=== PATIENT | female | born 1955 | race Caucasian/White ===

== ENCOUNTER → 2019-08-16 13:10 | Outpatient (BNVA) | payer MEDICARE, MEDICAID, SELFPAY | PROVIDERS: Family Provider Hospitalist; Referring Provider Family Medicine; Visit Provider Obstetrics & Gynecology | DX: R32 Unspecified urinary incontinence (principal) | CPT/HCPCS: 81003 ==

== ENCOUNTER → 2019-10-06 13:45 | Outpatient (BNVA) | payer MEDICARE, MEDICAID, SELFPAY | PROVIDERS: Family Provider Hospitalist; PCP Family Medicine; Referring Provider Obstetrics & Gynecology; Visit Provider Nurse Practitioner Family | DX: N39.46 Mixed incontinence (principal); R35.8 Other polyuria; F17.210 Nicotine dependence, cigarettes, uncomplicated | CPT/HCPCS: 80053; 81001 ==

== ENCOUNTER → 2019-11-22 14:13 | Outpatient (BNVA) | payer MEDICARE, MEDICAID, SELFPAY | PROVIDERS: Family Provider Hospitalist; PCP Family Medicine; Visit Provider Nurse Practitioner Family | DX: N39.46 Mixed incontinence (principal); R35.8 Other polyuria | CPT/HCPCS: 81001 ==

== ENCOUNTER → 2020-03-20 10:11 | Outpatient (BNVA) | payer MEDICARE, MEDICAID, SELFPAY | PROVIDERS: Family Provider Hospitalist; PCP Family Medicine; Referring Provider Family Medicine; Visit Provider Specialist | DX: G40.909 Epilepsy, unspecified, not intractable, without status epilepticus (principal) | CPT/HCPCS: 99204 ==

== ENCOUNTER → 2020-04-30 07:48 | Outpatient (BNVA) | payer MEDICARE, MEDICAID, SELFPAY | PROVIDERS: Family Provider Hospitalist; PCP Family Medicine; Visit Provider Specialist | DX: G40.909 Epilepsy, unspecified, not intractable, without status epilepticus (principal) | CPT/HCPCS: 95816 ==

== ENCOUNTER → 2020-05-23 14:04 | Outpatient (BNVA) | payer MEDICARE, MEDICAID, SELFPAY | PROVIDERS: Family Provider Hospitalist; PCP Family Medicine; Visit Provider Specialist | DX: G40.209 Localization-related (focal) (partial) symptomatic epilepsy and epileptic syndromes with complex partial seizures, not intractable, without status epilepticus (principal); F17.210 Nicotine dependence, cigarettes, uncomplicated | CPT/HCPCS: 99214 ==

== ENCOUNTER → 2021-05-07 15:17 | Outpatient (BNVA) | payer MEDICARE, MEDICAID, SELFPAY | PROVIDERS: Family Provider Hospitalist; PCP Family Medicine; Visit Provider Specialist | DX: G40.209 Localization-related (focal) (partial) symptomatic epilepsy and epileptic syndromes with complex partial seizures, not intractable, without status epilepticus (principal); Z91.419 Personal history of unspecified adult abuse | CPT/HCPCS: 99214; 99215 ==

== ENCOUNTER → 2021-11-19 14:22 | Outpatient (BNVA) | payer MEDICARE, MEDICAID, SELFPAY | PROVIDERS: Family Provider Hospitalist; PCP Family Medicine; Visit Provider Specialist | DX: G40.209 Localization-related (focal) (partial) symptomatic epilepsy and epileptic syndromes with complex partial seizures, not intractable, without status epilepticus (principal); F30.8 Other manic episodes | CPT/HCPCS: 99213 ==

== ENCOUNTER 2024-06-07 08:40 | Emergency (ER) | payer MEDICARE, MEDICAID, SELFPAY ==
[2024-06-07 08:41] VITALS: BP 145/75; PULSE 61; RESP 18; TEMP 36.9; O2SAT 93; BMI 21.6
--- NOTE | 2024-06-07 08:41 | ECG_ITS ---
[facility] 2024-[facility]07 Pat Name: Lucy Segovia Department: Room: Gender: Female Interface Engineer: : 1955 Requested By: Bi Lombardi Order Number: [id number] Shari MD: Angelita Last M.D. Measurements Intervals [place] Rate: 57 P: 71 WA: 130 QRS: 24 QRSD: 94 T: 40 QT: 432 QTc: 422 Interpretive Statements SINUS BRADYCARDIA LEFT ATRIAL ENLARGEMENT [-0.15mV P-WAVE IN V1/V2] No previous ECG available for comparison Electronically Signed On 06-07-2024 21:36:53 [employer]OUR BUS DRIVER by Angelita Last M.D. [id number]
--- NOTE | 2024-06-07 09:01 | ED_ITS ---
HPI - Headache 2 General: Chief Complaint: Headache Stated Complaint: Pain in Head and burning in arm Time Seen by Provider: 06/07/24 08:41 History of Present Illness: 68-year-old female presents emergency ro om with a complaint of a headache. She states she thought she was exposed to some bleach fumes yesterday gave her burning sensation in her right arm and then a headache she woke up with a headache this morning that is resolved now she states she was talking to her daughter earlier on the phone and she was hyperventilating that also resolved. On arrival here she has a waning headache and no other symptoms she is awake and alert no chest pain no shortness of breath no neurologic symptoms. Associated symptoms: Deny chest pain, fever(s) or rash Related Data Home Medications Medication Instructions Recorded Confirmed aspirin 81 mg tablet,delayed 162 mg PO DAILY 07/20/19 06/07/24 release (Adult Aspirin Regimen) cyanocobalamin (vitamin B-12) 1,000 mcg PO DAILY 07/20/19 06/07/24 1,000 mcg tablet gabapentin 300 mg capsule 300 mg PO BEDTIME 07/20/19 06/07/24 herbal drugs (Colon Herbal 1 cap PO DAILY 07/20/19 06/07/24 Cleanser capsule) mirtazapine 45 mg tablet 45 mg PO DAILY 07/20/19 06/07/24 triamcinolone acetonide 0.025 % 1 applic topical DAILY PRN Skin 07/20/19 06/07/24 topical cream Irritation cyclobenzaprine 10 mg tablet 5 - 10 mg PO DAILY 03/20/20 06/07/24 primidone 50 mg tablet 25 mg PO BEDTIME 03/20/20 06/07/24 biotin 10,000 mcg chewable tablet 10,000 mcg PO DAILY 06/07/24 06/07/24 (Hair, Skin and Nails (biotin)) cetirizine 10 mg tablet (Zyrtec) 10 mg PO DAILY 06/07/24 06/07/24 cholecalciferol (vitamin D3) 50 50 mcg PO DAILY 06/07/24 06/07/24 mcg (2,000 unit) tablet (Vitamin D3) fluticasone propionate 50 1 spray intranasal BID 06/07/24 06/07/24 mcg/actuation nasal spray,suspension levetiracetam 500 mg tablet 500 mg PO BID 06/07/24 06/07/24 magnesium oxide 400 mg PO DAILY 06/07/24 06/07/24 sertraline 100 mg tablet 100 mg PO DAILY 06/07/24 06/07/24 vit C 250 mg-vit E 90 mg-zinc 40 1 tab PO BID 06/07/24 06/07/24 mg-copper 1 [id number] capsule (PreserVision AREDS-2) Allergies Allergy/AdvReac Type Severity Reaction Status Date / Time Sulfa (Sulfonamide Allergy Severe ALGY-Hives Verified 11/19/21 14:29 Antibiotics) Review of Systems 2 Const: Denies: fever(s) or chills Card: Denies: chest pain Resp: Denies: dyspnea GI: Denies: abdominal pain : Denies: dysuria, urinary frequency or urinary urgency Musc: Denies: neck pain or back pain Skin/Breast: Denies: rash PFSH ED 2 PFSH: Medical History Diabetes Epilepsy Mixed urge and stress incontinence Polyuria Surgical History History of arthroscopic knee surgery left x2 History of arthroscopy of left shoulder History of shoulder surgery left History of tonsillectomy Family History Grandmother Breast cancer maternal Mother Diabetes Heart disease Sister Stroke Social History Smoking and tobacco/nicotine status: never used tobacco/nicotine Alcohol intake: current Alcohol intake frequency: holidays/special occasions only Alcohol type: beer Substance/Drug Use: never Marital status: Single Current occupational status: disabled Physical Exam 2 Const: COMMON NORMALS: no acute distress GENERAL APPEARANCE: cooperative and comfortable ORIENTATION/CONSCIOUSNESS: Yes awake, Yes oriented to person, Yes oriented to place and Yes oriented to time HENMT: COMMON NORMALS: normocephalic, atraumatic and hearing grossly normal bilaterally HEAD & SCALP: normocephalic and atraumatic Resp: COMMON NORMALS: normal respiratory effort, No retractions, No use of accessory muscles and clear to auscultation bilaterally AUSCULTATION: clear to auscultation bilaterally Cardio: COMMON NORMALS: regular rate, regular rhythm and No murmurs present (Cardio) RATE: regular rate RHYTHM: regular rhythm GI: COMMON NORMALS: Soft to palpation and No hepatosplenomegaly present A USCULTATION: Yes normoactive bowel sounds PALPATION: Yes Soft to palpation, No Tenderness to palpation present (GI), No Guarding due to palpation present (GI) and Yes No hepatosplenomegaly present Extremity: COMMON NORMALS: normal to inspection, capillary refill normal, no clubbing, cyanosis or edema, no calf tenderness and no pedal edema Neuro: SENSORIUM/ORIENTATION: Yes oriented to person, Yes oriented to place and Yes oriented to time Skin: COMMON NORMALS: no rashes or lesions noted GENERAL SKIN EXAM: no rashes or lesions noted Course 2 Vital Signs: Vital signs: Vital Signs Temperature 98.4 F 06/07/24 08:41 Pulse Rate 55 L 06/07/24 11:20 Respiratory Rate 18 06/07/24 08:41 Blood Pressure 142/73 06/07/24 11:20 Pulse Oximetry 96 06/07/24 11:20 MDM - Headache Medical Decision Making Labs reviewed no acute findings noted patient states she is feeling better. Suspect she may have gotten a headache from the noxious fumes can follow-up as needed. Avoid reexposure. Medical Records I reviewed the patient's medical records. Lab Data I reviewed the patient's lab results. 06/07/24 09:49 06/07/24 09:49 Laboratory Results WBC 8.05 10^3/uL (3.29-11.43) 06/07/24 09:49 RBC 4.67 10^6/uL (3.85-5.65) 06/07/24 09:49 Hgb 14.50 g/dL (11.27-16.99) 06/07/24 09:49 Hct 44.6 % (36-47) 06/07/24 09:49 MCV 95.5 fl (85-98) 06/07/24 09:49 MCH 31.0 pg (27-33) 06/07/24 09:49 MCHC 32.5 g/dL (30-55) 06/07/24 09:49 RDW 15.5 % (12.1-15.1) H 06/07/24 09:49 Plt Count 201 10^3/cmm (157-399) 06/07/24 09:49 MPV 11.1 fL (7.4-10.4) H 06/07/24 09:49 Neut % (Auto) 74.5 % 06/07/24 09:49 Lymph % (Auto) 15.2 % 06/07/24 09:49 [place] % (Auto) 9.2 % 06/07/24 09:49 Eos % (Auto) 0.1 % 06/07/24 09:49 Baso % (Auto) 0.6 % 06/07/24 09:49 Neut # (Auto) 6.00 10^3/uL (1.8-7.7) 06/07/24 09:49 Lymph # (Auto) 1.2 10^3/uL (0.8-4.8) 06/07/24 09:49 [place] # (Auto) 0.7 10^3/uL (0.2-0.9) 06/07/24 09:49 Eos # (Auto) 0.0 10^3/uL (0.0-0.8) 06/07/24 09:49 Baso # (Auto) 0.1 10^3/uL (0.0-0.1) 06/07/24 09:49 Nucleated RBC % (auto) 0 % 06/07/24 09:49 Nucleated RBCs # 0.0 /100WBC 06/07/24 09:49 Specimen Type Arterial 06/07/24 09:25 Sample Site Radial, left 06/07/24 09:25 ABG pH 7.45 (7.35-7.45) 06/07/24 09:25 ABG pCO2 39.5 mmHg (35-45) 06/07/24 09:25 ABG pO2 63.5 mmHg (80.0-100.0) L 06/07/24 09:25 ABG PO2/FiO2 Ratio 302 06/07/24 09:25 ABG HCO3 27.3 mmol/L (22-26) H 06/07/24 09:25 ABG O2 Saturation 95.1 06/07/24 09:25 ABG Base Excess 3.1 mmol/L (-2.0-2.0) H 06/07/24 09:25 Jonathon Test Pos 06/07/24 09:25 A-a O2 Gradient 5.0 mmHg (5-10) 06/07/24 09:25 Hematocrit 42.8 % (37-47) 06/07/24 09:25 Hgb O2 Saturation 89.9 % (95-100) L 06/07/24 09:25 Carboxyhemoglobin 4.6 %THgb (0.4-20.1) 06/07/24 09:25 Methemoglobin 0.8 % (0.4-1.5) 06/07/24 09:25 Total Hemoglobin 14.0 g/dL (12-16) 06/07/24 09:25 Sodium 143.0 mmol/L (131-143) 06/07/24 09:25 Potassium 4.1 mmol/L (3.5-5.0) 06/07/24 09:25 Glucose 107.0 mg/dL (70-115) 06/07/24 09:25 Ionized Calcium 1.2 mmol/L (1.1-1.4) 06/07/24 09:25 O2 Delivery Device Room air 06/07/24 09:25 FiO2 21.0 % 06/07/24 09:25 Heel Padder ID Gd 06/07/24 09:25 Sodium 141 mmol/L (136-145) 06/07/24 09:49 Potassium 4.5 mmol/L (3.5-5.1) 06/07/24 09:49 Chloride 103 mmol/L (98-107) 06/07/24 09:49 Carbon Dioxide 26 mmol/L (22-29) 06/07/24 09:49 Anion Gap 16.5 (5-19) 06/07/24 09:49 BUN 9 mg/dL (8-23) 06/07/24 09:49 Creatinine 0.7 mg/dL (0.5-0.9) 06/07/24 09:49 GFR Calculation 83.7 mL/min (90-130) L 06/07/24 09:49 Glucose 109 mg/dL (65-115) 06/07/24 09:49 Calculated Osmolality 291 mOsm/kg (285-295) 06/07/24 09:49 Calcium 9.4 mg/dL (8.5-10.5) 06/07/24 09:49 Total Bilirubin 0.3 mg/dL (0.15-1.2) 06/07/24 09:49 AST 15 U/L (0-32) 06/07/24 09:49 ALT 11 U/L (0-33) 06/07/24 09:49 Alkaline Phosphatase 113 U/L (35-105) H 06/07/24 09:49 Total Protein 6.8 g/dL (6.6-8.7) 06/07/24 09:49 Albumin 4.3 g/dL (3.5-5.2) 06/07/24 09:49 Globulin 2.5 g/dL (1.3-4.6) 06/07/24 09:49 No radiology studies performed this visit EKG Data EKG 1: Interpretation: Sinus bradycardia no acute ST changes noted rate of 57 [place] interval 130 QT 432 Discharge Plan Discharge Patient Disposition: Home Clinical Impression: Headache Condition: Stable Prescriptions: No Action aspirin [Adult Aspirin Regimen] 81 mg tablet,delayed release (DR/EC) 162 mg PO DAILY triamcinolone acetonide 0.025 % cream 1 applic TOPICAL DAILY PRN (Reason: Skin Irritation) cyanocobalamin (vitamin B-12) 1,000 mcg tablet 1,000 mcg PO DAILY Colon Herbal Cleanser Capsule 1 cap PO DAILY gabapentin 300 mg capsule 300 mg PO BEDTIME mirtazapine 45 mg tablet 45 mg PO DAILY cyclobenzaprine 10 mg tablet 5 - 10 mg PO DAILY primidone 50 mg tablet 25 mg PO BEDTIME cetirizine [Zyrtec] 10 mg Tablet 10 mg PO DAILY sertraline 100 mg tablet 100 mg PO DAILY fluticasone propionate 50 mcg/actuation spray,suspension 1 spray INTRANASAL BID cholecalciferol (vitamin D3) [Vitamin D3] 50 mcg (2,000 unit) Tablet 50 mcg PO DAILY magnesium oxide 400 mg magnesium Capsule 400 mg PO DAILY PreserVision AREDS-2 250-90-40-1 mg Capsule 1 tab PO BID Hair, Skin and Nails (biotin) 10,000 mcg Tablet,Chewable 10,000 mcg PO DAILY levetiracetam 500 mg tablet 500 mg PO BID Discharge Orders: Discharge ED (Routine); Ordered 06/07/24 Ordered By: Bi Fuller Referrals: Skyler Anderson DO [Referring] - Davey Parham MD [Primary Care Provider] - Discharge Diet: Usual diet Discharge Activity: Resume usual activity Patient Instructions: Opioid Safety, Pain Management Activity Restrictions/Additional Instructions: Thank you for choosing [facility] for your healthcare needs today. It is very important that you follow up as instructed or that you return to the Emergency Department should you have concerns or if your condition changes or worsens in any way. You were seen in the emergency room for headache related to exposure to noxious fumes. Since your symptoms had resolved and you have no further normal findings your lab work did not show significant abnormality at this time can be discharged home there is no acute medical condition Tylenol and ibuprofen avoid reexposure to the noxious fumes of cleaning supplies. Coding Level of Care Code ED Campaign Associate for Boni Mcintosh
[2024-06-07 09:44] LABS: ABG PCO2 39.5 mmHg (35-45); ABG PH Result 7.45 (7.35-7.45); Arterial Blood Gas Hematocrit 42.8 % (37-47); Base Excess ABG 3.1 mmol/L (-2.0-2.0); Blood Gas Allen Test Pos; Blood Gas Operator Identificat GD; Blood Gas Sample Site Radial, left; Blood Gas Sample Type Arterial; Carboxyhemoglobin 4.6 %THgb (0.4-20.1); HCO3 ABG 27.3 mmol/L (22-26); HGB O2 Sat 89.9 % (95-100); Ionized Calcium Level - ABG 1.2 mmol/L (1.1-1.4); Methemoglobin 0.8 % (0.4-1.5); Oxygen Device ROOM AIR; Oxygen Saturation ABG 95.1; PO2 ABG 63.5 mmHg (80.0-100.0); PO2 FiO2 Ratio Arterial Blood 302; Potassium Level - ABG 4.1 mmol/L (3.5-5.0)
[2024-06-07 09:56] LABS: Basophils # 0.1 10^3/uL (0.0-0.1); Basophils % 0.6 %; Eosinophils % 0.1 %; Hematocrit 44.6 % (36-47); Lymphocytes # 1.2 10^3/uL (0.8-4.8); Lymphocytes % 15.2 %; Mean Corpuscular HGB Conc 32.5 g/dL (30-55); Mean Corpuscular Volume 95.5 fl (85-98); Mean Platelet Volume 11.1 fL (7.4-10.4); Monocytes # 0.7 10^3/uL (0.2-0.9); Monocytes % 9.2 %; Neutrophils % 74.5 %; Nucleated Red Blood Cells % 0 %; Platelet Count 201 10^3/cmm (157-399); Red Blood Count 4.67 10^6/uL (3.85-5.65); Red Cell Distribution Width 15.5 % (12.1-15.1); White Blood Count 8.05 10^3/uL (3.29-11.43)
[2024-06-07 10:11] LABS: Alanine Aminotransferase 11 U/L (0-33); Albumin Level 4.3 g/dL (3.5-5.2); Alkaline Phosphatase 113 U/L (35-105); Anion Gap 16.5 (5-19); Aspartate Amino Transferase 15 U/L (0-32); Blood Urea Nitrogen 9 mg/dL (8-23); Calcium 9.4 mg/dL (8.5-10.5); Carbon Dioxide 26 mmol/L (22-29); Chloride 103 mmol/L (98-107); Creatinine Clr Calc Pharmacy 67.7031; Globulin 2.5 g/dL (1.3-4.6); Glomerular Filtration Rate 83.7 mL/min (90-130); Glucose 109 mg/dL (65-115); Osmolality Calculated 291 mOsm/kg (285-295); Potassium 4.5 mmol/L (3.5-5.1); Sodium 141 mmol/L (136-145); Total Bilirubin 0.3 mg/dL (0.15-1.2); Total Protein 6.8 g/dL (6.6-8.7)
[2024-06-07] MEDS: ketorolac 30 mg/mL INJ IVP (10:42)
[2024-06-07 11:20] VITALS: BP 142/73; PULSE 55; O2SAT 96
== END 2024-06-07 11:22 | disposition home or self-care (01) ==
PROVIDERS: Emergency Provider Family Medicine; PCP Family Medicine
DX: R51.9 Headache, unspecified (principal); E11.9 Type 2 diabetes mellitus without complications
CPT/HCPCS: 36415; 36600; 80051; 80053; 82330; 82805; 85025; 93005; 96374; 99284; J1885

== ENCOUNTER → 2025-02-20 12:57 | Outpatient (BNVA) | payer MEDICARE, MEDICAID, SELFPAY | PROVIDERS: PCP Family Medicine; Visit Provider Specialist | DX: G40.209 Localization-related (focal) (partial) symptomatic epilepsy and epileptic syndromes with complex partial seizures, not intractable, without status epilepticus (principal) | CPT/HCPCS: 99215 ==

== ENCOUNTER → 2025-03-09 09:06 | Outpatient (BNVA) | payer MEDICARE, MEDICAID, SELFPAY | PROVIDERS: PCP Family Medicine; Referring Provider Specialist; Visit Provider Specialist | DX: G40.209 Localization-related (focal) (partial) symptomatic epilepsy and epileptic syndromes with complex partial seizures, not intractable, without status epilepticus (principal) | CPT/HCPCS: 95819 ==

== ENCOUNTER 2025-05-11 09:43 | Emergency (ER) | payer MEDICARE, MEDICAID, SELFPAY ==
--- NOTE | 2025-05-11 09:44 | XRR_ITS ---
PROCEDURE INFORMATION: Exam: XR Chest Exam date and time: 05/11/2025 10:01 AM Age: 69 years old Clinical indication: Cough; Additional info: Headache; Cough; Back pain TECHNIQUE: Imaging protocol: Radiologic exam of the chest. Views: 1 view. COMPARISON: No relevant prior studies available. FINDINGS: Lungs: No focal airspace opacity. Pleural spaces: Small bilateral pleural effusions with adjacent atelectasis. No pneumothorax. Heart/Mediastinum: Heart size can not be accurately assessed in this projection. Bones/joints: Unremarkable. XR/XR chest 1V portable [id number] IMPRESSION: 1. No focal airspace opacity. 2. Small bilateral pleural effusions with adjacent atelectasis.
[2025-05-11 09:46] VITALS: BP 146/93; PULSE 110; RESP 17; TEMP 36.3; O2SAT 92; BMI 19.8
--- OUTSIDE RECORDS SUMMARY | 2025-05-11 09:49 | XMS_ITS | Encounter Summary ---
Author Organization [facility] Address [address] [place] [address] Care Team Providers Care Refrigeration Houseman Name Role Phone Davey Parham MD Primary Care Provider [phone] Encounter Details Date Type Department Care Team (Late st Contact Info) Description 11/26/2004 Outpatient Historical [facility] Social History Tobacco Use Types Packs/Day Years Used Date Smoking Tobacco: Never Assessed Comments Unknown Sex and Gender Information Value Date Recorded Sex Assigned at Not on file Legal Sex Female 11:25 AM [employer] SUPERVIS[employer] Gender Identity Not on file Sexual Orientation Not on file documented as of this encounter Plan of Treatment Not on file documented as of this encounter Visit Diagnoses Not on filedocumented in this encounter Care Teams Refrigeration Houseman Relationship Specialty Start Date End Date Davey Parham MD PCP - General Internal Medicine 03/13/20 03/13/20 documented as of this encounter
--- OUTSIDE RECORDS SUMMARY | 2025-05-11 09:49 | XMS_ITS | Clinical Summary ---
Author Organization [facility] Address [address] [facility] [address] Prince: [place] [address] Care Team Providers Care Ground Water Technician Name Role Phone Unavailable Primary Care Provider Unavailabl e Allergies Active Allergy Reactions Criticality Noted Date Comments Sulfa (Sulfonamide Antibiotics) Hives,Swelling High 01/10/2014 Medications primidone (MYSOLINE) 50 mg tablet TAKE ONE HALF TABLET BY MOUTH DAILY AT BEDTIME. 30 Tablet 5 9 Active tiZANidine (ZANAFLEX) 4 mg TabletIndication s:Chronic back pain greater than 3 months duration Take 1 Tablet (4 mg) by mouth daily at bedtime. 30 Tablet 5 9 Active mirtazapine (REMERON) 45 mg tabletIndication s:Bipolar disorder, in partial remission, most recent episode manic (CMS/HCC) Take 1 Tablet (45 mg) by mouth daily at bedtime. 30 Tablet 5 9 Active lamoTRIgine (LaMICtal) 150 mg tabletIndication s:Nonintractable generalized idiopathic epilepsy without status epilepticus (CMS/HCC) Take half a tab (75 mg) in the morning and 150 mg in the PM 60 Tablet 5 9 Active sertraline (ZOLOFT) 50 mg tabletIndication s:Bipolar disorder, in partial remission, most recent episode manic (CMS/HCC) Take 1 Tablet (50 mg) by mouth daily. 30 Tablet 5 9 Active gabapentin (NEURONTIN) 300 mg capsuleIndicatio ns:Type 2 diabetes mellitus with diabetic mononeuropathy, without long-term current use of insulin ([facility]) Take 1 Capsule (300 mg) by mouth daily at bedtime. 30 Capsule 5 9 Active triamcinolone acetonide (KENALOG) 0.1 % CreamIndications :Irritant contact dermatitis, unspecified trigger Apply to affected area 2 times daily. 45 Gram 2 9 Active MAGNESIUM OXIDE ORAL Take by mouth. 8 Active loratadine (CLARITIN) 10 mg tabletIndication s:Allergic rhinitis, unspecified allergic rhinitis trigger, unspecified rhinitis seasonality Take 1 Tablet (10 mg) by mouth daily. 30 Tablet 3 6 Active pyridoxine (VITAMIN B6) 100 mg Tablet Take 50 mg by mouth daily before breakfast. 6 Active Active Problems Patient Care Coordination No te Formatting of this note migh t be different from the original. Controlled Substance Contract signed with Dr Anderson --- Patient care coordination note from 12/25/2015 converted from [employer] by automated process on 02-20-2021 01:52:56 PM Problem Noted Date Diagnosed Date Chronic constipation 10/05/2018 Osteoarthritis of left shoulder 04/19/2018 Complete tear of left rotator cuff 04/19/2018 Chronic left shoulder pain 02/17/2018 Type 2 diabetes mellitus with diabetic mononeuro rupal 04/27/2016 Mixed hyperlipidemia 01/27/2016 Hypercalcemia 11/08/2015 Tremor, essential 10/28/2015 Chronic back pain greater than 3 months duration 05/16/2014 Allergic rhinitis 02/07/2014 Type 2 diabetes mellitus wit h diabetic peripheral angiopathy without gangrene, without long-term current use of insulin 01/10/2014 Bipolar disorder 01/10/2014 Tobacco abuse 01/10/2014 Urinary incontinence 01/10/2014 History of TIA (transient ischemic attack) Overview (10/11/2020): 2006 Epilepsy Overview (10/11/2020): Last seizure 2011 Resolved Problems Problem Noted Date Diagnosed Date Resolved Date Left foot pain 11/08/2015 08/29/2016 Preoperative general physical examination 11/08/2015 01/25/2016 Double vision 03/14/2014 10/28/2015 Right rotator cuff tear 03/14/201410/13 Vertigo 01/10/2014 10/28/2015 Immunizations Immunization Administration Dates Next Due (SHINGRIX)(50 YRS UP) ZOSTER VACCINE RECOMBINANT, 0.5 ML, IM 03/18/2018 Family History Medical History Relation Name Comments Healthy Daughter Matilda Other Father Timothy MVA Breast Cancer Maternal Grandmother Positi ve Response- See media tab- over 50 Diabetes Mother Matilda Heart Disease Mother Matilda Heart failure Respiratory Disease Sister 1 Lety COPD/Smo ker Dementia Sister 2 Emilee Diabetes Sister 3 Maureen Unknown Sister 4 Edith Other Sister 5 Elin Depression Healthy Son Xiang Ovarian Cancer Neg Hx Relation Name Status Comments Daughter Matilda Alive Father Timothy (Age 52) Maternal Grandmother Mother Matilda (Age 72) Sister 1 Lety (Age 63) Sister 2 Emilee Alive Sister 3 Maureen Alive Sister 4 Edith Alive Sister 5 Elin Alive Son Xiang Alive Social History Tobacco Use Types Packs/Day Years Used Date Smoking Tobacco: Every Day Cigarettes Smokeless Tobacco: Never Alcohol Use Standard Drinks/Week Comments No 0 (1 standard drink = 0.6 oz pur e alcohol) Comments Unknown Sex and Gender Information Value Date Recorded Sex Assigned at Not on file Legal Sex Female 11:54 PM NARROW FABRIC LOOM FIXER Gender Identity Not on file Sexual Orientation Not on file Last Filed Vital Signs Vital Sign Reading Time Taken Comments Blood Pressure 138/78 05/17/2019 3:06 PM NARROW FABRIC LOOM FIXER Pulse 60 05/17/2019 3:06 PM NARROW FABRIC LOOM FIXER Temperature 37 C (98.6 F) 05/17/2019 3:06 PM NARROW FABRIC LOOM FIXER Respiratory Rate 16 05/17/2019 3:06 PM NARROW FABRIC LOOM FIXER Oxygen Saturation - - Inhaled Oxygen Concentration - - Weight 55.3 kg (122 lb) 05/17/2019 3:06 PM NARROW FABRIC LOOM FIXER Height 170.2 cm (5' 7 ) 05/17/2019 3:06 PM NARROW FABRIC LOOM FIXER Body Mass Index 19.11 05/17/2019 3:06 PM NARROW FABRIC LOOM FIXER Plan of Treatment Health Maintenance Due Date Last Done Comments DTAP/TDAP/TD VACCINES (1 - Tdap) 1976 PNEUMOCOCCAL VACCINE 50+ YEA RS (1 of 2 - PCV) 1976 COLORECTAL SCREENING 2002 FIT-DNA Q 3 years 2002 Flex Sig/CT Colonography Q 5 years 2002 RSV VACCINE (60+ or ) (1 - Risk 50-74 years 1-dose series) 11/30/2007 ZOSTER VACCINE (2 of 2) 05/13/2018 03/18/2018 DIABETES MICROALBUMIN ANNUAL SCREEN 10/19/2018 10/19/2017, 04/25/2016 BREAST CANCER SCREENING 01/27/2019 01/28/20 18, 01/27/2018, 11/27/2016, Additional history exists DIABETES ANNUAL FOOT EXAM 03/06/20192017, 02/19/2018, 04/25/2016 DIABETES HBA1C Q 6 MONTHS 05/04/20192018, 11/01/2018, 06/23/2018, Additional history exists LDL CHOLESTEROL ANNUAL 06/23/2019 9, 10/19/2017, 01/16/2017, Additional history exists Colorectal Cancer Screening 10/04/2019 FIT/FOBT Q 1 year 10/04/2019 10/03/2018 DIABETES ANNUAL RETINAL EXAM 01/08/2021, 01/09/2020, 12/28/2017, Additional history exists OSTEOPOROSIS SCREENING 2022 INFLUENZA VACCINE (#1) 2025 Medical Devices Implanted Type Area Bullet Lubricant Mixer Device Identifier Shelf Expiration Date Model / Serial / Lot Hustle Sut Bio Swvlck 4.75x24.5mm Ar-2324bcm - [id number] Implanted:Qty: 3 on 04/06/2014 Hustle Left: Shoulder [employer] 12/13/2015 AR-[id number] / / [id number] Hustle Sut Crkscrw Biocmpst 5.5mm Ar-1927bcf - [id number] Implanted:Qty: 2 on 04/06/2014 Hustle Left: Shoulder [employer] 01/13/2016 AR-[id number] / / [id number] Hustle Sut Crkscrw Biocmpst 5.5mm Ar-[id number] - [id number] Implanted:Qty: 1 on 04/06/2014 Hustle Left: Shoulder [employer] 12/13/2015 AR-[id number] / / [id number] Screw Quckfx Pt 2.0x10mm [id number] - [id number] Implanted:Qty: 1 on 12/03/2015 by Kush Singletary DPM Screw Left: Foot [employer] AR-8720-10 PT / / Description:load [id number] Screw Quckfx Pt 2.0x12mm [id number] - [id number] Implanted:Qty: 1 on 12/03/2015 by Kush Singletary DPM Screw Left: Foot [employer] AR-8720-12 PT / / Description:load number [id number] Explanted Type Area Bullet Lubricant Mixer Device Identifier Shelf Expiration Date Model / Serial / Lot Guidewire, 0.86mm Explanted:Qty: 2 on 12/03/2015 Left: Foot [employer] AR-8727- 21 / NA / NA Description:Load number [id number] Procedures Procedure Name Priority Date/Time Associated Diagnosis Comments DIABETES EYE EXAM 01/09/2020 12:00 AM CDT HEMOGLOBIN A1C Routine 11/01/2018 3:28 PM CDT OCCULT BLOOD IMMUNOASSAY, COLORECTAL SCREEN Routine 10/03/2018 LIPID PANEL Routine 06/23/2018 2:47 PM NARROW FABRIC LOOM FIXER MAMMO SCREEN BILAT W OR WO CAD Routine 01/27/2018 12:00 AM CDT MICROALBUMIN/CREATIN INE RATIO, RANDOM UR Routine 10/19/2017 4:20 PM CDT from Last 3 Months or Most Recently Relevant to Health Maintenance Results * DIABETES EYE EXAM (01/09/2020 12:00 AM CDT) us f Scanning HEALTH MAINTENANCE Final Result * HEMOGLOBIN A1C (11/01/2018 3:28 PM CDT) HEMOGLOBIN A1C 5.4 See Comment % 11/02/2018 7:15 PM CDT [facility] EST. AVG GLUCOSE, A1C 108 mg/dL 11/02/2018 7:15 PM CDT [facility] Blood Venipuncture / Unknown 11/01/2018 3:28 PM CDT 11/02/2018 6:38 PM CDT Narrative [facility] - 11/02/2018 7:15 PM CDT HGB A1C INTERPRETATION NORMAL: <5.7% PRE-DIABETES: 5.7 - 6.4% DIABETES: 6.5% OR GREATER Falsely low A1C measurements can occur when: 1. Anemia and/or hemolytic anemia is present. 2. Hemoglobin variants present. 3. Renal failure. 4. Transfusion of blood product in the last 120 days. We recommend ordering a fructosamine test([id number]) to more accurately assess glycemic status if any of the above conditions are present. Skyler Anderson DO CHEMISTRY ORDERABLES Final Re sult [facility] CLIA# [id number] [facility] [address] * OCCULT BLOOD IMMUNOASSAY, COLORECTAL SCREEN (10/03/2018) OCCULT BLOOD IMMUNOASSAY, STOOL Negative EXTERNAL LAB Stool STOOL SPECIMEN / Unknown 10/03/2018 Narrative EXTERNAL LAB - 10/03/2018 12:00 AM CDT This order was created through External Result Entry Abstract Spg Provider BODY FLUIDS AND STOOLS Fin al Result Performing Organization Address [facility] Co de Phone Number EXTERNAL LAB * (ABNORMAL) LIPID PANEL (06/23/2018 2:47 PM NARROW FABRIC LOOM FIXER) CHOLESTEROL 173 <200 mg/dL 06/24/2018 7:33 PM [facility] TRIGLYCERIDE 73 <150 mg/dL 06/24/2018 7:33 PM [facility] HDL 64(H) 40 - 59 mg/dL 06/24/2018 7:33 PM [facility] LDL CALCULATED 94 <100 mg/dL 06/24/2018 7:33 PM [facility] NON-HDL CHOLESTEROL 109 <130 mg/dL 06/24/2018 7:33 PM [facility] Blood Venipuncture / Unknown 06/23/2018 2:47 PM NARROW FABRIC LOOM FIXER 06/24/2018 6:48 PM NARROW FABRIC LOOM FIXER Narrative [facility] - 06/24/2018 7:33 PM NARROW FABRIC LOOM FIXER TOTAL CHOLESTEROL mg/dL Desirable<200 Borderline [id number] High>=240 TRIGLYCERIDES mg/dL Normal<150 Borderline gvfp933-354 Durp611-692 Very high>=500 HDL CHOLESTEROL mg/dL Low<40 Peqqhw38-59 Desirable>=60 NON HDL CHOLESTEROL mg/dL Optimal<130 Near [id number] Borderline Zxza577-736 Very High>=190 Calculated LDL mg/dL Optimal<100 Near Dwsbvat268-975 Borderline Xmkl018-066 Gcjq827-729 Very High>=190 ATPIII Guidelines Reference Ranges for Lipid Panels (NCEP/AMA) Skyler Anderson DO CHEMISTRY ORDERABLES Final Re sult [facility] CLIA# [id number] [address] [place] [address] * MAMMO SCREEN BILAT W OR WO CAD (01/27/2018 12:00 AM CDT) Anatomical Region Laterality Modality Breast Bilateral Other Skyler Anderson DO MAMMO ORDERABLES Edited Resul t - Final * (ABNORMAL) MICROALBUMIN/CREATININE RATIO, RANDOM UR (10/19/2017 4:20 PM CDT) MICROALBUMIN, URINE <1.2 No Reference Range mg/dL 10/20/2017 7:29 PM CDT [facility] CREATININE, URINE 18.9(L) 29.0 - 226.0 mg/dL 10/20/2017 7:29 PM CDT [facility] Comment: Reference Range varies with fluid intake and diet. Urine URINE SPECIMEN OBTAINED BY CLEAN CATCH PROCEDURE / Unknown Collection / Unknown 10/19/2017 4:20 PM CDT 10/20/2017 6:55 PM CDT Narrative [facility] - 10/20/2017 7:29 PM CDT Condition Microalbumin/Creat ratio Normal Males <17 Normal Females <25 Microalbuminuria Males 17-299 Microalbuminuria Females 25-299 Overt proteinuria >=300 Unable to calculate urine microalbumin/creatinine ratio because urine microalbumin result is outside of reportable range. us Skyler Anderson DO URINE ORDERABLES Final Result [facility]# [id number] [place] [address] from Last 3 Months or Most Recently Relevant to Health Maintenance Advance Directives For more information, please contact: [phone] Documents on File Type Date Recorded Patient Chimney Builder Helper Expl anation Advance Directive Living Will 01/04/2019 11:09 AM Advance Directive Living Will Advance Directive POA 12/02/2017 8:30 AM A dvance Directive POA Advance Directive Living Will 12/02/2017 8:29 AM Advance Directive Living Will
--- OUTSIDE RECORDS SUMMARY | 2025-05-11 09:49 | XMS_ITS | Encounter Summary ---
Author Organization [facility] Address [address] [place] [address] Care Team Providers Care Web Press Operator Name Role Phone Davey Parham MD Primary Care Provider [phone] Reason for Referral * Outpatient Services (Routine) - Closed Specialty Diagnoses / Procedures Referred By Contac t Referred To Contact Radiology Diagnoses Inconclusive mammogram Procedures MAMMO DIGITAL DIAG UNI RIGHT Skyler Anderson DO Phone: tel: [facility] [address] [facility] [address] [place] [address] Phone: tel: fax: Referral ID Status Reason Start Date Expiration Date Visits Re quested Visits Authorized [id number] Closed 12/07/2015 01/06/2017 1 1 Encounter Details Date Type Department Care Team (Latest Contact Info) Description 12/07/2015 Ancillary Orders [facility] [address] [facility] [address] [place] [address] Skyler Anderson DO [address] [place] [address] Inconclusive mammogram (Primary Dx) Social History Tobacco Use Types Packs/Day Years Used Date Smoking Tobacco: Every Day Cigarettes 0.5 34 Smokeless Tobacco: Never Alcohol Use Standard Drinks/Week Comments No 0 (1 standard drink = 0.6 oz pur e alcohol) Comments No Sex and Gender Information Value Date Recorded Sex Assigned at Not on file Legal Sex Female 11:25 AM LOAN COORDINATOR Gender Identity Not on file Sexual Orientation Not on file Occupation Industry Job Start Date Job End Date Not on file Not on file Not on file Not on file documented as of this encounter Plan of Treatment Not on file documented as of this encounter Results * MAMMO DIGITAL DIAG UNI RIGHT (12/28/2015 2:12 PM CDT) Anatomical Region Laterality Modality Breast Right Mammography 12/28/2015 2:13 PM CDT Impressions 12/29/2015 9:10 AM CDT IMPRESSION: Additional images suggest that the area of apparent change far superiorly on right mediolateral oblique image was caused by variation in projection and/or compression. The area appears unremarkable and stable. I would recommend routine annual screening mammogram. Patient received a result/recommendation letter. [id number] Narrative 12/29/2015 9:10 AM CDT Right digital Diagnostic Mammogram: Multiple additional digital images are presented, to evaluate area of suspected asymmetry and possible change, overlying the lower portion of the right pectoralis muscle shadow on mediolateral oblique image of recent screening mammogram 11/22/2015, when compared with multiple previous. Additional images show this area to good advantage. When the additional images are reviewed and compared with recent mammogram and with previous, the area appears stable. I suspect that the apparent change was caused by slight variation in projection and compression. The area, in fact, appears essentially symmetrical, when the additional images are reviewed and compared with previous. Skyler Anderson DO MAMMO ORDERABLES Final Result documented in this encounter Visit Diagnoses Diagnosis Inconclusive mammogram- Primary Inconclusive mammogram documented in this encounter Care Teams Web Press Operator Relationship Specialty Start Date End Date Davey Parham MD PCP - General Internal Medicine 03/13/20 03/13/20 documented as of this encounter
--- OUTSIDE RECORDS SUMMARY | 2025-05-11 09:49 | XMS_ITS | Encounter Summary ---
Author Organization [facility] Address [address] [facility] Attn: [place] [address] Care Team Providers Care Hot Dip Tinning Supervisor Name Role Phone Davey Parham MD Primary Care Provider [phone] Encounter Details Date Type Department Care Team (Late st Contact Info) Description 11/18/2004 Outpatient Historical Miguel Gomez MD NO ADDRESS ON FILE CONVULSIONS, OTHER (CMS/HCC) (Primary Dx) Social History Tobacco Use Types Packs/Day Years Used Date Smoking Tobacco: Never Assessed Comments Unknown Sex and Gender Information Value Date Recorded Sex Assigned at Not on file Legal Sex Female 11:25 AM MARINE TRANSPORT PROFESSIONALS Gender Identity Not on file Sexual Orientation Not on file documented as of this encounter Plan of Treatment Not on file documented as of this encounter Visit Diagnoses Diagnosis Other convulsions- Primary documented in this encounter Care Teams Hot Dip Tinning Supervisor Relationship Specialty Start Date End Date Davey Parham MD PCP - General Internal Medicine 03/13/20 03/13/20 documented as of this encounter
--- OUTSIDE RECORDS SUMMARY | 2025-05-11 09:49 | XMS_ITS | Encounter Summary ---
Author Organization [facility] Address [address] [place] [address] Care Team Providers Care Manager Culinary Name Role Phone Davey Parham MD Primary Care Provider [phone] Encounter Details Date Type Department Care Team (Late st Contact Info) Description 11/18/2004 Outpatient Historical [facility] [place] [address] [address] Social History Tobacco Use Types Packs/Day Years Used Date Smoking Tobacco: Never Assessed Comments Unknown Sex and Gender Information Value Date Recorded Sex Assigned at Not on file Legal Sex Female 11:25 AM MODEL MAKER PLASTER Gender Identity Not on file Sexual Orientation Not on file documented as of this encounter Plan of Treatment Not on file documented as of this encounter Visit Diagnoses Not on filedocumented in this encounter Care Teams Manager Culinary Relationship Specialty Start Date End Date Davey Parham MD PCP - General Internal Medicine 03/13/20 03/13/20 documented as of this encounter
--- OUTSIDE RECORDS SUMMARY | 2025-05-11 09:49 | XMS_ITS | Encounter Summary ---
Author Organization [facility] Address [address] [place] [address] Care Team Providers Care Environmental Field Services Technician Name Role Phone Davey Parham MD Primary Care Provider [phone] [phone] Encounter Details Date Type Department Care Team (Latest Contact Info) Description 11/18/2004 Outpatient Historical [facility] [address] [place] [address] Miguel Gomez MD NO ADDRESS ON FILE CONVULSIONS, OTHER (CMS/HCC) (Primary Dx) Social History Tobacco Use Types Packs/Day Years Used Date Smoking Tobacco: Never Assessed Comments Unknown Sex and Gender Information Value Date Recorded Sex Assigned at Not on file Legal Sex Female 11:25 AM VICE PRESIDENT SUPPLY CHAIN Gender Identity Not on file Sexual Orientation Not on file documented as of this encounter Plan of Treatment Not on file documented as of this encounter Visit Diagnoses Diagnosis Other convulsions- Primary documented in this encounter Care Teams Environmental Field Services Technician Relationship Specialty Start Date End Date Davey Parham MD PCP - General Internal Medicine 03/13/20 03/13/20 documented as of this encounter
--- OUTSIDE RECORDS SUMMARY | 2025-05-11 09:49 | XMS_ITS | Encounter Summary ---
Author Organization [facility] Address [address] [facility] Attn: [place] [address] Care Team Providers Care Ornamenter Hand Name Role Phone Davey Parham MD Primary Care Provider [phone] Encounter Details Date Type Department Care Team (Late st Contact Info) Description 07/25/2004 Outpatient Historical Aleksandar Jauregui MD [address] [place] [address] CONVULSIONS, OTHER (CMS/HCC) (Primary Dx) Social History Tobacco Use Types Packs/Day Years Used Date Smoking Tobacco: Never Assessed Comments Unknown Sex and Gender Information Value Date Recorded Sex Assigned at Not on file Legal Sex Female 11:25 AM HYDRAULIC AUTO JACK MECHANIC Gender Identity Not on file Sexual Orientation Not on file documented as of this encounter Plan of Treatment Not on file documented as of this encounter Visit Diagnoses Diagnosis Other convulsions- Primary documented in this encounter Care Teams Ornamenter Hand Relationship Specialty Start Date End Date Davey Parham MD PCP - General Internal Medicine 03/13/20 03/13/20 documented as of this encounter
--- OUTSIDE RECORDS SUMMARY | 2025-05-11 09:49 | XMS_ITS | Patient Health Record ---
Author Organization [facility] Address [address] [place] [address] Support Name Relationship Address Phone Lucy Segovia Guarantor Unknown [phone] Reason For Referral No Information Medications Medication SIG (Take, Route, Frequency, Duration) Notes Start Date End Date Status Myrbetriq Myrbetriq 08/12/2018 0 Active Magnesium Oxide 250 MG Oral Tablet Magnesium Oxide 250 MG Oral Tablet 08/12/2018 0 Active Sertraline 50 MG Oral Tablet Sertraline 50 MG Oral Tablet 08/12/2018 0 Active Acetaminophen 325 MG / Hydrocodone Bitartrate 10 MG Oral Tablet Acetaminophen 325 MG / Hydrocodone Bitartrate 10 MG Oral Tablet 08/12/2018 0 Active Hydroxyzine Hydrochloride 25 MG Oral Tablet Hydroxyzine Hydrochloride 25 MG Oral Tablet 08/12/2018 0 Active Mirtazapine 45 MG Oral Tablet Mirtazapine 45 MG Oral Tablet 08/12/2018 0 Active Cholecalciferol 1000 UNT Oral Capsule Cholecalciferol 1000 UNT Oral Capsule 08/12/2018 0 Active Aspirin 81 MG Oral Tablet Aspirin 81 MG Oral Tablet 08/12/2018 0 Active gabapentin 100 MG Oral Capsule gabapentin 100 MG Oral Capsule 08/12/2018 0 Active lamotrigine 150 MG Oral Tablet lamotrigine 150 MG Oral Tablet 08/12/2018 0 Active tizanidine 4 MG Oral Capsule tizanidine 4 MG Oral Capsule 08/12/2018 0 Active Loratadine 10 MG Oral Capsule Loratadine 10 MG Oral Capsule 08/12/2018 0 Active Primidone 50 MG Oral Tablet Primidone 50 MG Oral Tablet 08/12/2018 0 Active Immunizations Vaccine Route Administration Date Status Comme nts Influenza (whole), CPT 39385 Inactive Unknown 08/12/2018 Administered Social History Social History Additional Details Category Social Info Options Details zzMigrated Social History Migrated Social History Smoking Status:Ex-smoker (finding) Plan Of Treatment No Information
--- OUTSIDE RECORDS SUMMARY | 2025-05-11 09:49 | XMS_ITS | Encounter Summary ---
Author Organization [facility] Address [address] [place] [address] Care Team Providers Care Nursing Home Director Name Role Phone Davey Parham MD Primary Care Provider [phone] [phone] Encounter Details Date Type Department Care Team (Late st Contact Info) Description 07/25/2004 Outpatient Historical [facility] Social History Tobacco Use Types Packs/Day Years Used Date Smoking Tobacco: Never Assessed Comments Unknown Sex and Gender Information Value Date Recorded Sex Assigned at Not on file Legal Sex Female 11:25 AM EVENT AV OPERATOR Gender Identity Not on file Sexual Orientation Not on file documented as of this encounter Plan of Treatment Not on file documented as of this encounter Visit Diagnoses Not on filedocumented in this encounter Care Teams Nursing Home Director Relationship Specialty Start Date End Date Davey Parham MD PCP - General Internal Medicine 03/13/20 03/13/20 documented as of this encounter
--- OUTSIDE RECORDS SUMMARY | 2025-05-11 09:49 | XMS_ITS | Encounter Summary ---
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 Social History Tobacco Use Types Packs/Day Years Used Date Smoking Tobacco: Never Assessed Comments Unknown Sex and Gender Information Value Date Recorded Sex Assigned at Not on file Legal Sex Female 11:25 AM FURNACE DOOR TENDER Gender Identity Not on file Sexual Orientation Not on file documented as of this encounter Plan of Treatment Not on file documented as of this encounter Visit Diagnoses Diagnosis Other convulsions- Primary Migraine without aura, without mention of intractable migraine without mention of status migrainosus documented in this encounter Care Teams Edge Molder Relationship Specialty Start Date End Date Davey Parham MD PCP - General Internal Medicine 03/13/20 03/13/20 documented as of this encounter
--- OUTSIDE RECORDS SUMMARY | 2025-05-11 09:49 | XMS_ITS | Encounter Summary ---
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
--- OUTSIDE RECORDS SUMMARY | 2025-05-11 09:49 | XMS_ITS | Clinical Summary ---
Author Organization [facility] Address [address] [place] [address] Care Team Providers Care Operator Specialist Communications Name Role Phone Unavailable Primary Care Provider Unavailabl e Allergies Active Allergy Reactions Criticality Noted Date Comments Sulfa (Sulfonamide Antibiotics) Hives,Swelling High 01/10/2014 Medications aspirin (ASPIRIN EC) 81 mg Tablet, Delayed Release (E.C.) Take 2 Tabs by mouth daily. Active cholecalciferol, Vitamin D3, (VITAMIN D3) 1,000 unit Capsule Take 1 Capsule by mouth daily before breakfast . Active pyridoxine, vitamin B6, (VITAMIN B6) 100 mg Tablet Take 50 mg by mouth daily before breakfast. Active loratadine (CLARITIN) 10 mg tabletIndication s:Allergic rhinitis, unspecified allergic rhinitis trigger, unspecified rhinitis seasonality Take 1 Tablet (10 mg) by mouth daily. 30 Tablet 3 6 Active MAGNESIUM OXIDE ORAL Take by mouth. Activ e triamcinolone acetonide (KENALOG) 0.1 % CreamIndications :Irritant contact dermatitis, unspecified trigger Apply to affected area 2 times daily. 45 Gram 2 9 Active primidone (MYSOLINE) 50 mg tablet TAKE ONE HALF TABLET BY MOUTH DAILY AT BEDTIME. 30 Tablet 5 9 Active lamoTRIgine (LaMICtal) 150 mg tabletIndication s:Nonintractable generalized idiopathic epilepsy without status epilepticus (CMS/HCC) Take half a tab (75 mg) in the morning and 150 mg in the PM 60 Tablet 5 9 Active tiZANidine (ZANAFLEX) 4 mg TabletIndication s:Chronic back pain greater than 3 months duration Take 1 Tablet (4 mg) by mouth daily at bedtime. 30 Tablet 5 9 Active sertraline (ZOLOFT) 50 mg tabletIndication s:Bipolar disorder, in partial remission, most recent episode manic (CMS/HCC) Take 1 Tablet (50 mg) by mouth daily. 30 Tablet 5 9 Active mirtazapine (REMERON) 45 mg tabletIndication s:Bipolar disorder, in partial remission, most recent episode manic (CMS/HCC) Take 1 Tablet (45 mg) by mouth daily at bedtime. 30 Tablet 5 9 Active gabapentin (NEURONTIN) 300 mg capsuleIndicatio ns:Type 2 diabetes mellitus with diabetic mononeuropathy, without long-term current use of insulin (CMS/HCC) Take 1 Capsule (300 mg) by mouth daily at bedtime. 30 Capsule 5 9 Active Active Problems Patient Care Coordination No te Formatting of this note migh t be different from the original. Controlled Substance Contract signed with Dr Anderson Problem Noted Date Diagnosed Date Chronic constipation 10/05/2018 Complete tear of left rotator cuff 04/19/2018 Osteoarthritis of left shoulder 04/19/2018 Chronic left shoulder pain 02/17/2018 Type 2 diabetes mellitus with diabetic mononeuro rupal 04/27/2016 Mixed hyperlipidemia 01/27/2016 Hypercalcemia 11/08/2015 Tremor, essential 10/28/2015 Chronic back pain greater than 3 months duration 05/16/2014 Allergic rhinitis 02/07/2014 Type 2 diabetes mellitus wit h diabetic peripheral angiopathy without gangrene, without long-term current use of insulin 01/10/2014 Bipolar disorder 01/10/2014 Urinary incontinence 01/10/2014 Tobacco abuse 01/10/2014 Epilepsy Overview (11/08/2015): Last seizure 2011 History of TIA (transient ischemic attack) Overview (11/08/2015): 2006 Resolved Problems Problem Noted Date Diagnosed Date Resolved Date Preoperative general physical examination 11/08/2015 01/25/2016 Left foot pain 11/08/2015 08/29/2016 Double vision 03/14/2014 10/28/2015 Right rotator cuff [...] Used Date Smoking Tobacco: Every Day Cigarettes 1 34 Smokeless Tobacco: Never Tobacco Cessation:Ready to Q uit: No; Counseling Given: Yes Alcohol Use Standard Drinks/Week Comments No 0 (1 standard drink = 0.6 oz pur e alcohol) Comments No Sex and Gender Information Value Date Recorded Sex Assigned at Not on file Legal Sex Female 11:25 AM DOCTOR OF PODIATRIC MEDICINE Gender Identity Not on file Sexual Orientation Not on file Occupation Industry Job Start Date Job End Date Not on file Not on file Not on file Not on file Last Filed Vital Signs Vital Sign Reading Time Taken Comments Blood Pressure 138/78 05/17/2019 3:06 PM DOCTOR OF PODIATRIC MEDICINE Pulse 60 05/17/2019 3:06 PM DOCTOR OF PODIATRIC MEDICINE Temperature 37 C (98.6 F) 05/17/2019 3:06 PM DOCTOR OF PODIATRIC MEDICINE Respiratory Rate 16 05/17/2019 3:06 PM DOCTOR OF PODIATRIC MEDICINE Oxygen Saturation 98% 05/17/2019 3:06 PM DOCTOR OF PODIATRIC MEDICINE Inhaled Oxygen Concentration - - Weight 55.3 kg (122 lb) 05/17/2019 3:06 PM DOCTOR OF PODIATRIC MEDICINE Height 170.2 cm (5' 7 ) 05/17/2019 3:06 PM DOCTOR OF PODIATRIC MEDICINE Body Mass Index 19.11 05/17/2019 3:06 PM DOCTOR OF PODIATRIC MEDICINE Plan of Treatment Health Maintenance Due Date [...] 03/18/2018 DIABETES MICROALBUMIN ANNUAL SCREEN 10/19/2018 10/19/2017, 04/25/2016, 05/16/2014, Additional history exists BREAST CANCER SCREENING 01/27/2019 01/28/20 18, 11/27/2016, 11/27/2016, Additional history exists DIABETES ANNUAL FOOT EXAM 03/06/20192017, 02/19/2018, 04/25/2016, Additional history exists DIABETES HBA1C Q 6 MONTHS 05/04/20192018, 06/23/2018, 10/19/2017, Additional history exists LDL CHOLESTEROL ANNUAL 06/23/2019 9, 10/19/2017, 01/16/2017, Additional history exists Colorectal Cancer Screening 10/04/2019 FIT/FOBT Q 1 year 10/04/2019 10/03/2018 DIABETES ANNUAL RETINAL EXAM 01/08/2021, 12/28/2017, 01/19/2017, Additional history exists OSTEOPOROSIS SCREENING 2022 INFLUENZA VACCINE (#1) 2025 Medical Devices Implanted Type Area Tender Labor Device Identifier Shelf Expiration Date Model / Serial / Lot [place] Sut Crkscrw Biocmpst 5.5mm [id number] - [id number] Implanted:Qty: 2 on 04/06/2014 at [facility] [place] Left: Shoulder [employer] 01/13/2016 [id number] / / [id number] [place] Sut Crkscrw Biocmpst 5.5mm [id number] - [id number] Implanted:Qty: 1 on 04/06/2014 at [facility] [place] Left: Shoulder [employer] 12/13/2015 [id number] / / [id number] [place] Sut Bio Swvlck 4.75x24.5mm Ar-[id number] - [id number] Implanted:Qty: 3 on 04/06/2014 at [facility] [place] Left: Shoulder [employer] 12/13/2015 AR-[id number] / / [id number] Screw Quckfx Pt 2.0x10mm [id number] - [id number] Implanted:Qty: 1 on 12/03/2015 by Kush Singletary DPM at [facility] Screw Left: Foot [employer] AR-8720-10 PT / / Description:load [id number] Screw Quckfx Pt 2.0x12mm [id number] - [id number] Implanted:Qty: 1 on 12/03/2015 by Kush Singletary DPM at [facility] Screw Left: Foot [employer] AR-8720-12 PT / / Description:load number [id number] Explanted Type Area Tender Labor Device Identifier Shelf Expiration Date Model / Serial / Lot Guidewire, 0.86mm Explanted:Qty: 2 on 12/03/2015 at [facility] Left: Foot [employer] AR-8727-2 1 / NA / NA Description:Load number [id number] Procedures Procedure Name Priority Date/Time Associated Diagnosis Comments DIABETES EYE EXAM Routine 01/09/2020 HEMOGLOBIN A1C Routine 11/01/2018 3:28 PM CDT Type 2 diabetes mellitus with diabetic mononeuropathy, without long-term current use of insulin ([facility]) Type 2 diabetes mellitus with diabetic peripheral angiopathy without gangrene, without long-term current use of insulin ([facility]) OCCULT BLOOD IMMUNOASSAY, COLORECTAL SCREEN Routine 10/03/2018 LIPID PANEL Routine 06/23/2018 2:47 PM DOCTOR OF PODIATRIC MEDICINE Mixed hyperlipidemia MAMMO SCREEN BILAT W OR WO CAD Routine 01/27/2018 MICROALBUMIN/CREATI NINE RATIO, RANDOM UR Routine 10/19/2017 4:20 PM CDT Type 2 diabetes mellitus with diabetic mononeuropathy, without long-term current use of insulin ([facility]) from Last 3 Months or Most Recently Relevant to Health Maintenance Results * DIABETES EYE EXAM (01/09/2020) us Abstract Spg Provider HEALTH MAINTENANCE Final R esult * HEMOGLOBIN A1C (11/01/2018 3:28 PM CDT) HEMOGLOBIN A1C 5.4 See Comment % 11/02/2018 7:15 PM CDT [facility] EST. AVG GLUCOSE, A1C 108 mg/dL 11/02/2018 7:15 PM CDT [facility] Blood Venipuncture / Unknown 11/01/2018 3:28 PM CDT 11/02/2018 6:38 PM CDT Narrative [facility] - 11/02/2018 7:15 PM CDT HGB A1C INTERPRETATION NORMAL: <5.7% PRE-DIABETES: 5.7 - 6.4% DIABETES: 6.5% OR GREATER Falsely low A1C measurements can occur when: 1. Anemia and/or hemolytic anemia is present. 2. Hemoglobin variants present. 3. Renal failure. 4. Transfusion of blood product in the last 120 days. We recommend ordering a fructosamine test([id number]) to more accurately assess glycemic status if any of the above conditions are present. us Skyler Anderson DO CHEMISTRY ORDERABLES Final Re sult [facility] CLIA# [id number] [address] [place] [address] * OCCULT BLOOD IMMUNOASSAY, COLORECTAL SCREEN (10/03/2018) OCCULT BLOOD IMMUNOASSAY, STOOL Negative EXTERNAL LAB Stool STOOL SPECIMEN / Unknown 10/03/2018 us Abstract Spg Provider BODY FLUIDS AND STOOLS Fin al Result EXTERNAL LAB * (ABNORMAL) LIPID PANEL (06/23/2018 2:47 PM DOCTOR OF PODIATRIC MEDICINE) CHOLESTEROL 173 <200 mg/dL 06/24/2018 7:33 PM DOCTOR OF PODIATRIC MEDICINE [facility] TRIGLYCERIDE 73 <150 mg/dL 06/24/2018 7:[address] [facility] HDL 64(H) 40 - 59 mg/dL 06/24/2018 7:[address] [facility] LDL CALCULATED 94 <100 mg/dL 06/24/2018 7:[address] [facility] NON-HDL CHOLESTEROL 109 <130 mg/dL 06/24/2018 7:[address] [facility] Blood Venipuncture / Unknown 06/23/2018 2:47 PM DOCTOR OF PODIATRIC MEDICINE 06/24/2018 6:48 PM DOCTOR OF PODIATRIC MEDICINE Narrative [facility] - 06/24/2018 7:33 PM DOCTOR OF PODIATRIC MEDICINE TOTAL CHOLESTEROL mg/dL Desirable <200 Borderline high 200-239 High >=240 TRIGLYCERIDES mg/dL Normal <150 Borderline high 150-199 High 200-499 Very high >=500 HDL CHOLESTEROL mg/dL Low <40 Normal 40-59 Desirable >=60 NON HDL CHOLESTEROL mg/dL Optimal <130 Near Optimal 130-159 Borderline High 160-189 Very High >=190 Calculated LDL mg/dL Optimal <100 Near Optimal 100-129 Borderline High 130-159 High 160-189 Very High >=190 ATPIII Guidelines Reference Ranges for Lipid Panels (NCEP/AMA) Skyler Anderson DO CHEMISTRY ORDERABLES Final Re sult [facility] IA# [id number] [address] [place] [address] * MAMMO SCREEN BILAT W OR WO CAD (01/27/2018) Anatomical Region Laterality Modality Breast Bilateral Mammography Skyler Anderson DO MAMMO ORDERABLES Edited Resul t - Final * (ABNORMAL) MICROALBUMIN/CREATININE RATIO, RANDOM UR (10/19/2017 4:20 PM CDT) MICROALBUMIN, URINE <1.2 No Reference Range mg/dL 10/20/2017 7:29 PM CDT [facility] CREATININE, URINE 18.9(L) 29.0 - 226.0 mg/dL 10/20/2017 7:29 PM CDT [facility] Comment: Reference Range varies with fluid intake and diet. Urine URINE SPECIMEN OBTAINED BY CLEAN CATCH PROCEDURE / Unknown Collection / Unknown 10/19/2017 4:20 PM CDT 10/20/2017 6:55 PM CDT Narrative [facility] - 10/20/2017 7:29 PM CDT Condition Microalbumin/Creat ratio Normal Males <17 Normal Females <25 Microalbuminuria Males 17-299 Microalbuminuria Females 25-299 Overt proteinuria >=300 Unable to calculate urine microalbumin/creatinine ratio because urine microalbumin result is outside of reportable range. Skyler Anderson DO URINE ORDERABLES Final Result Performing Organization Address City/State/[facility] Co de Phone Number [facility] CLIA# [id number] [facility] [place] [address] from Last 3 Months or Most Recently Relevant to Health Maintenance Insurance [place]ID [place] Member Subscriber Plan / Payer (Ef fective 2013-Present) Name:Lucy Segovia Relation to Subscriber:Self Name:Lucy Segovia Payer ID:[id number] Group ID:Not on file Type:Medicaid Address: [address] DUAL COMPLETE MCR PPO D-SNP [place]ID [place] Advance Directives For more information, please contact: [phone] Documents on File Type Date Recorded Patient Maintenance Of Way Supervisor Expl anation Advance Directive Living Will 01/04/2019 11:09 AM Advance Directive Living Will Advance Directive POA 11/16/2017 8:30 AM Ad brunner Directive POA Advance Directive Living Will 11/16/2017 8:27 AM Advance Directive Living Will * Full Code (Latest Code Status on File) Date Activated Date Inactivated Comments 12/03/2015 11:57 AM 12/03/2015 5:27 PM * Full Code Date Activated Date Inactivated Comments 04/06/2014 8:48 AM 04/06/2014 2:17 PM * Full Code Date Activated Date Inactivated Comments 04/06/2014 8:11 AM 04/06/2014 8:48 AM * Full Code Date Activated Date Inactivated Comments 04/06/2014 7:01 AM 04/06/2014 8:11 AM
--- OUTSIDE RECORDS SUMMARY | 2025-05-11 09:49 | XMS_ITS | Encounter Summary ---
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
--- OUTSIDE RECORDS SUMMARY | 2025-05-11 09:49 | XMS_ITS | Encounter Summary ---
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 Gender Identity Not on file Sexual Orientation Not on file documented as of this encounter Plan of Treatment Not on file documented as of this encounter Procedures Procedure Name Priority Date/Time Associated Diagnosis Comments CBC WITH DIFFERENTIAL Routine 11/26/2004 12:08 PM CDT PHENYTOIN LEVEL, TOTAL Routine 5 12:08 PM CDT COMPREHENSIVE METABOLIC PANEL Routine 11/26/2004 12:08 PM CDT documented in this encounter Results * PHENYTOIN LEVEL, TOTAL (11/26/2004 12:08 PM CDT) PHENYTOIN TOTAL 17.6 10.0 - 20.0 ug/mL INTERFACE SYSTEM 11/26/2004 12:0 8 PM CDT Miguel Gomez MD CHEMISTRY ORDERABLES Final Re sult Performing Organization Address [facility] de Phone Number INTERFACE SYSTEM Refer to clinic/hospital department * COMPREHENSIVE METABOLIC PANEL (11/26/2004 12:08 PM CDT) CREATININE 0.7 0.7 - 1.2 mg/dL INTERFACE SYSTEM ALBUMIN/GLOBULIN RATIO 1.4 1.0 - 2.3 INTERFACE SYSTEM GLUCOSE 79 70 - 110 mg/dL INTERFACE SYSTEM BUN 13 7 - 17 mg/dL INTERFACE SYSTEM SODIUM 140 136 - 145 mEq/L INTERFACE SYSTEM POTASSIUM 4.2 3.5 - 5.0 mEq/L INTERFACE SYSTEM Comment:Specimen slightly he molyzed CO2 27 22 - 32 mmol/l INTERFACE SYSTEM CHLORIDE 104 95 - 110 mEq/L INTERFACE SYSTEM CALCIUM 9.2 8.4 - 10.5 mg/dL INTERFACE SYSTEM ALKALINE PHOSPHATASE 79 38 - 126 IU/L INTERFACE SYSTEM TOTAL PROTEIN 7.8 6.3 - 8.2 g/dL INTERFACE SYSTEM ALBUMIN 4.5 3.5 - 5.0 g/dL INTERFACE SYSTEM AST 27 14 - 36 IU/L INTERFACE SYSTEM ALT 33 9 - 52 IU/L INTERFACE SYSTEM BILIRUBIN TOTAL 0.5 0.2 - 1.4 mg/dL INTERFACE SYSTEM GLOBULIN (CALC) 3.3 2.4 - 3.9 g/dL INTERFACE SYSTEM ANION GAP 13 9 - 20 mEq/L INTERFACE SYSTEM OSMOLALITY, CALCULATED 287 275 - 295 mOsm/Kg INTERFACE SYSTEM 11/26/2004 12:0 8 PM CDT Miguel Gomez MD CHEMISTRY ORDERABLES Final Re sult Performing Organization Address [facility] Phone Number INTERFACE SYSTEM Refer to clinic/hospital department * (ABNORMAL) CBC WITH DIFFERENTIAL (11/26/2004 12:08 PM CDT) WBC 6.0 4.5 - 11.0 K/ul INTERFACE SYSTEM RBC 4.79 4.20 - 5.40 Mil/ul INTERFACE SYSTEM HEMOGLOBIN 15.0 12.0 - 16.0 g/dL INTERFACE SYSTEM HEMATOCRIT 44.7 36.0 - 46.0 % INTERFACE SYSTEM MCV 93.3 84.0 - 103.0 Fl INTERFACE SYSTEM MCH 31.3 27.0 - 34.0 pg INTERFACE SYSTEM MCHC 33.6 30.0 - 35.0 g/dL INTERFACE SYSTEM RDW 14.2 11.0 - 14.5 % INTERFACE SYSTEM PLATELETS 230 140 - 440 K/ul INTERFACE SYSTEM MPV 10.7 8.9 - 12.8 Fl INTERFACE SYSTEM NEUTROPHILS 57.3 42.2 - 75.2 % INTERFACE SYSTEM LYMPHOCYTES 30.7 24.0 - 44.0 % INTERFACE SYSTEM MONOCYTES 10.1(H) 2.0 - 10.0 % INTERFACE SYSTEM EOSINOPHILS 1.2 0.0 - 7.0 % INTERFACE SYSTEM BASOPHILS 0.7 0.0 - 1.0 % INTERFACE SYSTEM NEUTROPHIL ABSOLUTE 3.5 2.0 - 8.0 K/uL INTERFACE SYSTEM LYMPHOCYTE ABSOLUTE 1.9 1.2 - 4.0 K/ul INTERFACE SYSTEM MONOCYTE ABSOLUTE 0.6 0.1 - 0.6 K/ul INTERFACE SYSTEM EOSINOPHIL ABSOLUTE 0.1 0.0 - 0.7 K/ul INTERFACE SYSTEM BASOPHILS ABSOLUTE 0.0 0.0 - 0.2 K/ul INTERFACE SYSTEM 11/26/2004 12:0 8 PM CDT us Miguel Gomez MD HEMATOLOGY ORDERABLES Final R esult INTERFACE SYSTEM Refer to clinic/hospital department documented in this encounter Visit Diagnoses Diagnosis Other convulsions- Primary documented in this encounter Care Teams Beekeeper Relationship Specialty Start Date End Date Davey Parham MD PCP - General Internal Medicine 03/13/20 03/13/20 documented as of this encounter
--- OUTSIDE RECORDS SUMMARY | 2025-05-11 09:49 | XMS_ITS | Encounter Summary ---
Author Organization [facility] Address [address] [place] [address] Care Team Providers Care Creel Cleaner Name Role Phone Davey Parham MD Primary Care Provider [phone] Encounter Details Date Type Department Care Team (Latest Contact Info) Description 11/01/2004 Outpatient Historical [facility] [address], [address] [place] [address] Miguel Gomez MD NO ADDRESS ON FILE CONVULSIONS, OTHER (CMS/HCC) (Primary Dx) Social History Tobacco Use Types Packs/Day Years Used Date Smoking Tobacco: Never Assessed Comments Unknown Sex and Gender Information Value Date Recorded Sex Assigned at Not on file 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
--- OUTSIDE RECORDS SUMMARY | 2025-05-11 09:49 | XMS_ITS | Encounter Summary ---
Author Organization [facility] Address [address] [place] [address] Care Team Providers Care Technical Operations Vice President Name Role Phone Davey Parham MD Primary Care Provider [phone] [phone] Encounter Details Date Type Department Care Team (Latest Contact Info) Description 12/27/2004 Outpatient Historical [facility] [address], [address] [place] [address] Miguel Gomez MD NO ADDRESS ON FILE CONVULSIONS, OTHER (CMS/HCC) (Primary Dx) Social History Tobacco Use Types Packs/Day Years Used Date Smoking Tobacco: Never Assessed Comments Unknown Sex and Gender Information Value Date Recorded Sex Assigned at Not on file Legal Sex Female 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
--- OUTSIDE RECORDS SUMMARY | 2025-05-11 09:49 | XMS_ITS | Encounter Summary ---
Author Organization [facility] Address [address] Attn: [place] [address] Care Team Providers Care Plate Inspector Name Role Phone Davey Parham MD Primary Care Provider [phone] Encounter Details Date Type Department Care Team (Late st Contact Info) Description 09/21/2001 Inpatient Historical Lee Her MD NO ADDRESS ON FILE Social History Tobacco Use Types Packs/Day Years Used Date Smoking Tobacco: Never Assessed Comments Unknown Sex and Gender Information Value Date Recorded Sex Assigned at Not on file Legal Sex Female 11:25 AM AGENCY LEGAL COUNSEL Gender Identity Not on file Sexual Orientation Not on file documented as of this encounter Plan of Treatment Not on file documented as of this encounter Visit Diagnoses Not on filedocumented in this encounter Care Teams Plate Inspector Relationship Specialty Start Date End Date Davey Parham MD PCP - General Internal Medicine 03/13/20 03/13/20 documented as of this encounter
--- NOTE | 2025-05-11 09:51 | W.ED.URI ---
HPI - URI/Sore Throat General: Chief Complaint: Upper Respiratory Infection Stated Complaint: headache/persistent cough/back pain Time Seen by Provider: 05/11/25 09:47 Source: patient Mode of arrival: ambulatory Limitations: no limitations History of Present Illness: 69-year-old female states she has had cough congestion over the last 2 days. States her cough been productive in nature states she also had a headache along with some bodyaches she denies any fevers denies any dyspnea denies any worse or improving factors. No known sick contacts. Related Data Home Medications ?Medication ?Instructions ?Recorded ?Confirmed aspirin 81 mg tablet,delayed 162 mg PO DAILY 07/20/19 05/11/25 release (Adult Aspirin Regimen) cyanocobalamin (vitamin B-12) 1,000 mcg PO DAILY 07/20/19 05/11/25 1,000 mcg tablet gabapentin 300 mg capsule 300 mg PO BEDTIME 07/20/19 05/11/25 mirtazapine 45 mg tablet 45 mg PO DAILY 07/20/19 05/11/25 cyclobenzaprine 10 mg tablet 5 - 10 mg PO DAILY 03/20/20 05/11/25 primidone 50 mg tablet 25 mg PO BEDTIME 03/20/20 05/11/25 biotin 10,000 mcg chewable tablet 10,000 mcg PO DAILY 06/07/24 05/11/25 (Hair, Skin and Nails (biotin)) cetirizine 10 mg tablet (Zyrtec) 10 mg PO DAILY 06/07/24 05/11/25 cholecalciferol (vitamin D3) 50 50 mcg PO DAILY 06/07/24 05/11/25 mcg (2,000 unit) tablet (Vitamin D3) magnesium oxide 400 mg PO DAILY 06/07/24 05/11/25 sertraline 100 mg tablet 100 mg PO DAILY 06/07/24 05/11/25 vit C 250 mg-vit E 90 mg-zinc 40 1 tab PO BID 06/07/24 05/11/25 mg-copper 1 [id number]-[id number]-bohjst capsule (PreserVision AREDS-2) herbal drugs 1 cap PO QPM 05/11/25 05/11/25 Previous Rx's ?Medication ?Instructions ?Recorded levetiracetam 500 mg tablet 500 mg PO BID #180 tabs 02/20/25 doxycycline hyclate 100 mg tablet 100 mg PO BID 7 days #14 tabs 05/11/25 Allergies Allergy/AdvReac Type Severity Reaction Status Date / Time Sulfa (Sulfonamide Allergy Severe ALGY-Hives Verified 03/09/25 09:42 Antibiotics) Review of Systems Resp: Reports: productive cough PFSH ED PFSH: Medical History Partial idiopathic epilepsy with seizures of localized onset, intractable, without status epilepticus Polyuria Mixed urge and stress incontinence Diabetes Surgical History History of tonsillectomy History of arthroscopic knee surgery left x2 History of arthroscopy of left shoulder History of shoulder surgery left Family History Grandmother Breast cancer maternal Mother Diabetes Heart disease Sister Stroke Social History Smoking and tobacco/nicotine status: current every day tobacco/nicotine user cigarettes Packs smoked per day: 1 Alcohol intake: current Alcohol intake frequency: holidays/special occasions only Alcohol type: beer Substance/Drug Use: never Marital status: Single Current occupational status: disabled Physical Exam Const: COMMON NORMALS: no acute distress, patient oriented x3 and healthy appearing HENMT: COMMON NORMALS: normocephalic and atraumatic HEAD & SCALP: normocephalic and atraumatic Eye: COMMON NORMALS: conjunctivae normal CONJUNCTIVA: Yes conjunctivae normal Neck/C-Spine: COMMON NORMALS: full ROM and supple Chest: COMMONS NORMALS: normal inspection of the chest and normal palpation of entire chest wall Resp: COMMON NORMALS: normal respiratory effort, No retractions, No use of accessory muscles and clear to auscultation bilaterally AUSCULTATION: clear to auscultation bilaterally Cardio: COMMON NORMALS: regular rate, regular rhythm and No murmurs present (Cardio) RATE: regular rate RHYTHM: regular rhythm Extremity: COMMON NORMALS: normal to inspection and full ROM Neuro: COMMON NORMALS: patient oriented x3, moves all extremities and no focal motor deficits Psych: COMMON NORMALS: mental status grossly normal, Normal thought process present and cooperative THOUGHT PROCESS: Normal thought process present Skin: COMMON NORMALS: no rashes or lesions noted and no wounds GENERAL SKIN EXAM: no rashes or lesions noted Course Vital Signs: Vital signs: Vital Signs Temperature 97.4 F L 05/11/25 09:46 Pulse Rate 98 05/11/25 10:41 Respiratory Rate 18 05/11/25 10:08 Blood Pressure 146/93 05/11/25 10:41 Pulse Oximetry 90 05/11/25 10:41 Oxygen Delivery Pa thod Room Air 05/11/25 10:08 Fraction of Inspir ed Oxygen 21 05/11/25 10:08 MDM - URI/Sore Throat Medical Decision Making 69-year-old female presented here with cough along with shortness of breath patient does have elevated white count chest x-ray reviewed by me shows likely small left lower lobe pneumonia. Had some mild hypoxia oxygen here is 90 she feels improved after breathing treatment and steroid. I did offer her admission she states she would like to go home. Will prescribe her doxycycline she is to return if worsening she understands agrees to plan. Medical Records I reviewed the patient's medical records. Lab Data I reviewed the patient's lab results. 05/11/25 10:08 05/11/25 10:08 Radiology Impressions Chest X-Ray 05/11/25 09:44 IMPRESSION: 1. No focal airspace opacity. 2. Small bilateral pleural effusions with adjacent atelectasis. Laboratory Results WBC 18.16 10^3/uL (3.29-11.43) H 05/11/25 10:08 RBC 4.87 10^6/uL (3.85-5.65) 05/11/25 10:08 Hgb 14.80 g/dL (11.27-16.99) 05/11/25 10:08 Hct 44.5 % (36-47) 05/11/25 10:08 MCV 91.4 fl (85-98) 05/11/25 10:08 MCH 30.4 pg (27-33) 05/11/25 10:08 MCHC 33.3 g/dL (30-55) 05/11/25 10:08 RDW 13.7 % (12.1-15.1) 05/11/25 10:08 Plt Count 284 10^3/cmm (157-399) 05/11/25 10:08 MPV 10.8 fL (7.4-10.4) H 05/11/25 10:08 Neut % (Auto) 83.4 % 05/11/25 10:08 Lymph % (Auto) 6.9 % 05/11/25 10:08 [place] % (Auto) 8.0 % 05/11/25 10:08 Eos % (Auto) 0.1 % 05/11/25 10:08 Baso % (Auto) 0.4 % 05/11/25 10:08 Neut # (Auto) 15.14 10^3/uL (1.8-7.7) H 05/11/25 10:08 Lymph # (Auto) 1.3 10^3/uL (0.8-4.8) 05/11/25 10:08 [place] # (Auto) 1.5 10^3/uL (0.2-0.9) H 05/11/25 10:08 Eos # (Auto) 0.0 10^3/uL (0.0-0.8) 05/11/25 10:08 Baso # (Auto) 0.1 10^3/uL (0.0-0.1) 05/11/25 10:08 Nucleated RBC % (auto) 0 % 05/11/25 10:08 Nucleated RBCs # 0.0 /100WBC 05/11/25 10:08 Sodium 137 mmol/L (136-145) 05/11/25 10:08 Potassium 3.6 mmol/L (3.5-5.1) 05/11/25 10:08 Carbon Dioxide 25 mmol/L (22-29) 05/11/25 10:08 Creatinine 0.5 mg/dL (0.5-0.9) 05/11/25 10:08 GFR Calculation 123.1 mL/min (90-130) 05/11/25 10:08 Calcium 9.3 mg/dL (8.5-10.5) 05/11/25 10:08 Total Bilirubin 0.4 mg/dL (0.15-1.2) 05/11/25 10:08 AST 21 U/L (0-32) 05/11/25 10:08 ALT 15 U/L (0-33) 05/11/25 10:08 Total Protein 6.6 g/dL (6.6-8.7) 05/11/25 10:08 Albumin 3.9 g/dL (3.5-5.2) 05/11/25 10:08 Globulin 2.7 g/dL (1.3-4.6) 05/11/25 10:08 All radiology interpretation(s) finalized by discharge Discharge Plan Discharge Patient Disposition: Home Clinical Impression: Pneumonia Condition: Stable Prescriptions: New doxycycline hyclate 100 mg tablet 100 mg PO BID 7 Days Qty: 14 0RF No Action aspirin [Adult Aspirin Regimen] 81 mg tablet,delayed release (DR/EC) 162 mg PO DAILY cyanocobalamin (vitamin B-12) 1,000 mcg tablet 1,000 mcg PO DAILY gabapentin 300 mg capsule 300 mg PO BEDTIME mirtazapine 45 mg tablet 45 mg PO DAILY cyclobenzaprine 10 mg tablet 5 - 10 mg PO DAILY primidone 50 mg tablet 25 mg PO BEDTIME levetiracetam 500 mg tablet 500 mg PO BID Qty: 180 3RF cetirizine [Zyrtec] 10 mg Tablet 10 mg PO DAILY sertraline 100 mg tablet 100 mg PO DAILY cholecalciferol (vitamin D3) [Vitamin D3] 50 mcg (2,000 unit) Tablet 50 mcg PO DAILY magnesium oxide 400 mg magnesium Capsule 400 mg PO DAILY PreserVision AREDS-2 250-90-40-1 mg Capsule 1 tab PO BID Hair, Skin and Nails (biotin) 10,000 mcg Tablet,Chewable 10,000 mcg PO DAILY Colon Herbal Cleanser Capsule 1 cap PO QPM Discharge Orders: Discharge ED (Routine); Ordered 05/11/25 Ordered By: Milly Buenrostro Referrals: Davey Parham MD [Primary Care Provider, Family Practice] - 4-7 days Discharge Diet: Advance as tolerated Discharge Activity: Resume usual activity Patient Instructions: Pneumonia (ED) Print Language: Cuban Coding Level of Care Code ED Interventional Pain Physician for Boni Mcintosh
[2025-05-11 10:08] VITALS: PULSE 95; RESP 18; O2SAT 92
[2025-05-11 10:14] LABS: Hematocrit 44.5 % (36-47); Hemoglobin 14.80 g/dL (11.27-16.99); Mean Corpuscular HGB Conc 33.3 g/dL (30-55); Mean Corpuscular Hemoglobin 30.4 pg (27-33); Mean Corpuscular Volume 91.4 fl (85-98); Nucleated Red Blood Cells % 0 %; Platelet Count 284 10^3/cmm (157-399); Red Blood Count 4.87 10^6/uL (3.85-5.65); White Blood Count 18.16 10^3/uL (3.29-11.43)
[2025-05-11 10:41] VITALS: BP 146/93; PULSE 98; O2SAT 90
[2025-05-11 10:42] LABS: Alanine Aminotransferase 15 U/L (0-33); Albumin Level 3.9 g/dL (3.5-5.2); Alkaline Phosphatase 144 U/L (35-105); Anion Gap 20.6 (5-19); Aspartate Amino Transferase 21 U/L (0-32); Blood Urea Nitrogen 6 mg/dL (8-23); Calcium 9.3 mg/dL (8.5-10.5); Carbon Dioxide 25 mmol/L (22-29); Chloride 95 mmol/L (98-107); Globulin 2.7 g/dL (1.3-4.6); Glucose 120 mg/dL (65-115); Osmolality Calculated 283 mOsm/kg (285-295); Potassium 3.6 mmol/L (3.5-5.1); Sodium 137 mmol/L (136-145); Total Protein 6.6 g/dL (6.6-8.7)
[2025-05-11 10:59] VITALS: BP 146/93; PULSE 88; O2SAT 91
[2025-05-11 11:03] LABS: Respiratory Syncytial Virus Ce NEGATIVE (Negative); SARS-CoV-2 PCR NEGATIVE (Negative)
== END 2025-05-11 11:06 | disposition home or self-care (01) ==
PROVIDERS: Emergency Provider Emergency Medicine; PCP Family Medicine
DX: J18.9 Pneumonia, unspecified organism (principal); Z79.82 Long term (current) use of aspirin; F17.210 Nicotine dependence, cigarettes, uncomplicated; E11.9 Type 2 diabetes mellitus without complications
CPT/HCPCS: 71045; 80053; 85025; 87637; 94640; 96374; 96375; 99284; J1100; J1885; J9999